=== PATIENT | male | born 1990 | race Caucasian/White ===

== ENCOUNTER 2016-11-19 22:36 | Emergency (ER) | payer SELFPAY ==
[~2016-11-19] VITALS: Ht 182.9 cm; Wt 68.5 kg
[~2016-11-19 22:36] MED LIST: TRAM50TA2 PO
[2016-11-19 22:44] VITALS: Ht 182.9 cm; Wt 68.5 kg
[2016-11-19] MEDS ORDERED: SOD CHLORIDE 0.9% 1,000 ML IV STA (23:16)
[2016-11-19] MEDS ORDERED: ONDANSETRON 4 MG INJ IV STA (23:16)
[2016-11-19] MEDS ORDERED: morphine 2 MG INJ IV STA (23:16)
--- NOTE | 2016-11-19 23:21 | ERD ---
ER Documentation Chief Complaint Date/Time DATE: 11/19/16 TIME: 23:20 Chief Complaint abdominal pain/back pain x 1 hour HPI 26-year-old male presents here in emergency department for complaints of epigastric abdominal pain started an hour prior to arrival. Patient described the pain as sharp pain, 6/10 scale, not better or worse with anything. Patient denies any nausea or vomiting. Patient denies any fever or chills. Patient denies hematuria or dysuria. ROS All systems reviewed and are negative except as per history of present illness. Medications Home Meds Active Scripts Tramadol HCl (Tramadol HCl) 50 Mg Tab, 50 MG PO Q4 Y for PAIN, #20 TAB Prov:STEFANO TOMAS 04/10/15 Allergies Allergies: Coded Allergies: No Known Drug Allergies (Verified Allergy, Unknown, 04/10/15) PMhx/Soc Medical and Surgical Hx: pt denies Medical Hx, pt denies Surgical Hx Hx Alcohol Use: Yes (every other day) Hx Substance Use: No Hx Tobacco Use: Yes (6 cigs per day) FmHx Family History: coronary disease, diabetes, other Physical Exam Vitals Vital Signs Date Time Temp Pulse Resp B/P Pulse Ox O2 Delivery O2 Flow Rate FiO2 11/19/16 22:44 96.0 84 20 133/67 100 Physical Exam GENERAL: The patient is well developed and appropriate for usual state of health, in no apparent distress. CHEST: Clear to auscultation bilaterally. There are no rales, wheezes or rhonchi. HEART: Regular rate and rhythm. No murmurs, clicks, rubs or gallops. No S3 or S4. ABDOMEN: Soft, nontender and nondistended. Good bowel sounds. No rebound or guarding. No gross peritonitis. No gross organomegaly or masses. No Andres sign or McBurney point tenderness. BACK: No midline or flank tenderness. EXTREMITIES: Equal pulses bilaterally. There is no peripheral clubbing, cyanosis or edema. No focal swelling or erythema. Full range of motion. Grossly neurovascularly intact. NEURO: Alert and oriented. Cranial nerves 2-12 intact. Motor strength in all 4 extremities with 5/5 strength. Sensation grossly intact. Normal speech and gait. SKIN: There is no apparent rash or petechia. The skin is warm and dry. HEMATOLOGIC AND LYMPHATIC: There is no evidence of excessive bruising or lymphedema. No gross cervical, axillary, or inguinal lymphadenopathy. Result Diagram: 11/19/16 2335 11/19/16 2335 Results 24 hrs Laboratory Tests Test 11/19/16 01:25 11/19/16 23:35 Urine Bilirubin NEGATIVE Urine Clarity CLEAR Urine Color LT. YELLOW Urine Glucose NEGATIVE% Urine Hemoglobin NEGATIVE Urine Ketones 40 Urine Leukocyte Esterase NEGATIVE Urine Nitrite NEGATIVE Urine Specific [place] 1.010 Urine Total Protein NEGATIVE Urine Urobilinogen 0.2 E.U./dL Urine pH 7.0 Alanine Aminotransferase (ALT/SGPT) 96IU/L Albumin 4.5g/dl Albumin/Globulin Ratio 1.45 Alkaline Phosphatase 75IU/L Anion Gap 20 Aspartate Amino Transf (AST/SGOT) 164IU/L Basophils # 0.010^3/ul Basophils % 0.2% Blood Urea Nitrogen 21mg/dl Calcium Level 9.3mg/dl Carbon Dioxide Level 25mmol/L Chloride Level 98mmol/L Creatinine 0.79mg/dl Direct Bilirubin 0.00mg/dl Eosinophils # 0.010^3/ul Eosinophils % 0.2% Globulin 3.10g/dl Glucose Level 196mg/dl Hematocrit 38.7% Hemoglobin 13.5g/dl Indirect Bilirubin 0.3mg/dl Lipase 46U/L Lymphocytes # 1.110^3/ul Lymphocytes % 11.6% Mean Corpuscular Hemoglobin 29.2pg Mean Corpuscular Hemoglobin Concent 34.9g/dl Mean Corpuscular Volume 83.8fl Mean Platelet Volume 10.1fl Monocytes # 0.310^3/ul Monocytes % 3.4% Neutrophils # 7.810^3/ul Neutrophils % 84.1% Nucleated Red Blood Cells # 0.010^3/ul Nucleated Red Blood Cells % 0.0/100WBC Platelet Count 58851^3/UL Potassium Level 3.6mmol/L Red Blood Count 4.6210^6/ul Red Cell Distribution Width 11.9% Sodium Level 139mmol/L Total Bilirubin 0.3mg/dl Total Protein 7.6g/dl White Blood Count 9.310^3/ul Current Medications Medications (Trade) Dose Ordered Sig/Natasha Route PRN Reason Start Time Stop Time Status Last Admin Dose Admin Sodium Chloride (NS) 1,000 ml @ 1,000 mls/hr Q1H STAT IV 11/19/16 23:16 11/20/16 00:15 DC 11/19/16 23:31 Morphine Sulfate (morphine) 2 mg ONCE STAT IV 11/19/16 23:16 11/19/16 23:20 DC 11/19/16 23:31 Ondansetron HCl (Zofran Inj) 4 mg ONCE STAT IV 11/19/16 23:16 11/19/16 23:20 DC 11/19/16 23:31 IV Flush 10 ml 10 ml STK-MED ONCE .ROUTE 11/20/16 00:21 11/20/16 00:22 DC 11/20/16 00:25 Sodium Chloride (NS) 100 ml @ ud STK-MED ONCE .ROUTE 11/20/16 00:21 11/20/16 00:22 DC 11/20/16 00:25 Iohexol (Omnipaque 300mg/ ml) 150 ml STK-MED ONCE .ROUTE 11/20/16 00:21 11/20/16 00:22 DC 11/20/16 00:25 Miscellaneous Medication (Gi Cocktail (2)) 40 ml ONCE ONCE PO 11/20/16 01:00 11/20/16 01:10 DC 11/20/16 01:14 Famotidine (Pepcid Iv) 20 mg ONCE ONCE IV 11/20/16 01:00 11/20/16 01:10 DC 11/20/16 01:14 Hydromorphone HCl (Dilaudid) 1 mg ONCE STAT IV 11/20/16 00:59 11/20/16 01:10 DC 11/20/16 01:15 Procedures/MDM Medical Decision Making: Patient's symptoms of abdominal pain epigastric pain most likely is consistent with possible gastric ulcer, low suspicion for any acute bowel perforation. Possible gastritis also. I discussed this case with my attending physician, Dr. Horton, he recommended to give patient a GI cocktail , IV Dilaudid, and Pepcid here in emergency department with symptoms, will be sent home with pain medications. He reviewed patient's CT scan abdomen and pelvis, did not recommend any more imaging to be done. There is low suspicion for abdominal emergencies at this time. Patients abdominal exam is normal at this time. Patients radiology exam does not show any abdominal emergencies at this time. There is low suspicion for appendicitis, cholecystitis, abdominal aortic aneurysms or peritonitis at this time. There is low suspicion for sepsis. Patient appears well and is hemodynamically stable. Disposition: Home. Condition: Stable Prescription [place], omeprazole, Mylanta, Zofran Instructions: Patient is advised to take medications as prescribed. Patient is advised to rest, increase fluid intake and do eat at regular intervals, low acidic diet for next 1-2 days and progress as tolerated. Patient is advised that if symptoms are worse, severe abdominal pain, uncontrolled vomiting, high fever, severe flank pain, worst signs and symptoms, to return to the emergency department immediately. Otherwise, patient can follow up with primary care doctor in 5-7 days. Departure Diagnosis: Primary Impression: Abdominal pain Abdominal location: epigastric Qualified Code: R10.13 - Epigastric pain Condition: Stable Patient Instructions: Epigastric Pain (Uncertain Cause) Additional Instructions: Patient is advised to take medications as prescribed. Patient is advised to rest , increase fluid intake and do eat at regular intervals, low acidic diet for next 1-2 days and progress as tolerated. Patient is advised that if symptoms are worse, severe abdominal pain, uncontrolled vomiting, high fever, severe flank pain, worst signs and symptoms, to return to the emergency department immediately. Otherwise, patient can follow up with primary care doctor in 5-7 days. NEWTON SRINIVASAN NP Nov 19, 2016 23:21
[2016-11-19 23:48] LABS: ADD SCAN DIFF NO
[2016-11-19 23:49] LABS: BASOPHILS % 0.2 % (0.0-2.0); EOSINOPHILS % 0.2 % (0.0-7.0); HEMATOCRIT 38.7 % (42.0-52.0); HEMOGLOBIN 13.5 g/dl (14.0-18.0); LYMPHOCYTES # 1.1 10^3/ul (0.8-2.9); LYMPHOCYTES % 11.6 % (15.0-51.0); MEAN CORPUSCULAR HEMOGLOBIN 29.2 pg (29.0-33.0); MEAN CORPUSCULAR HGB CONC 34.9 g/dl (32.0-37.0); MEAN CORPUSCULAR VOLUME 83.8 fl (82.0-101.0); MEAN PLATELET VOLUME 10.1 fl (7.4-10.4); MONOCYTE # 0.3 10^3/ul (0.3-0.9); MONOCYTES % 3.4 % (0.0-11.0); NEUTROPHIL # 7.8 10^3/ul (1.6-7.5); NEUTROPHILS % 84.1 % (39.0-77.0); PLATELET COUNT 153 10^3/UL (140-415); RED BLOOD COUNT 4.62 10^6/ul (4.70-6.10); RED CELL DISTRIBUTION WIDTH 11.9 % (11.5-14.5); WHITE BLOOD COUNT 9.3 10^3/ul (4.8-10.8)
[2016-11-20 00:07] LABS: ALBUMIN 4.5 g/dl (3.3-4.9)
[2016-11-20 00:08] LABS: POTASSIUM 3.6 mmol/L (3.5-5.1)
[2016-11-20 00:10] LABS: ALBUMIN/GLOBULIN RATIO 1.45; BILIRUBIN,INDIRECT 0.3 mg/dl (0-1.1); BILIRUBIN,TOTAL 0.3 mg/dl (0.2-1.3); CREATININE 0.79 mg/dl (0.61-1.24); TOTAL PROTEIN 7.6 g/dl (6.1-8.1)
[2016-11-20 00:11] LABS: CALCIUM 9.3 mg/dl (8.4-10.2)
[2016-11-20] MEDS ORDERED: IOHEXOL 300MG/ML 150 ML BTL ONE (00:21)
[2016-11-20] MEDS ORDERED: SOD CHLORIDE 0.9% 100 ML ONE (00:21)
--- NOTE | 2016-11-20 00:47 | RADRPT ---
PROCEDURE: CT Abdomen and Pelvis with contrast. CLINICAL INDICATION: Abdominal pain. TECHNIQUE: A CT scan of the abdomen and pelvis was performed with intravenous contrast. The patie nt was scanned following the uncomplicated intravenous administration of 100 cc of Omnipaque-300. C oronal and sagittal reformatted images were obtained from the axial source images. Images were revie wed on a high-resolution PACS workstation. CTDIvol: 4.67 mGy. DLP: 296.18 mGy-cm. One or more of the following dose reduction techniques were used: - Automated exposure control. - Adjustment of the mA and/or kV according to patient size. - Use of iterative reconstruction technique. COMPARISON: None. FINDINGS: The lung bases are clear. There is mild intrahepatic biliary ductal dilatation, however the common bile duct is not dilated (4 mm). The gallbladder is normal in appearance. The spleen is not enlarged. No pancreatic lesion is i dentified and there is no pancreatic ductal dilatation. The adrenal glands are unremarkable. The kidneys are normal in size. There is no perinephric fat stranding. No hydronephrosis is seen. The small and large bowel are normal in caliber. There is no bowel wall thickening. The appendix is not definitively identified, however there is a 5 mm diameter air-filled structure overlying the rig ht external iliac artery which probably represents a normal appendix. The urinary bladder is unremarkable. The pelvic organs are within normal limits. No lymphadenopathy is identified. There is no ascites. No pneumoperitoneum is seen. There are no art erial calcifications. No suspicious osseous lesion is idenitified. IMPRESSION: 1. No inflammation, mass, or lymphadenopathy. 2. The appendix is not definitively identified, however there is a 5 mm diameter air-filled structu re overlying the right external iliac artery which probably represents a normal appendix. If there i s high concern for appendicitis, close clinical follow-up is recommended. Any follow-up CT imaging should be performed with both oral and intravenous contrast. 3. Mild intrahepatic biliary ductal dilatation. The common bile duct is not dilated, however (4 mm ). Correlation with bilirubin levels is recommended. This could be further evaluated with MRCP or ERCP, as clinically warranted. RPTAT: HTAR .Noé Carmona, MD, Date Time Electronically viewed and signed by .Noé Carmona MD, on 11/20/2016 00:47 .R/
[2016-11-20] MEDS ORDERED: HYDROmorphONE 1 MG/ML SYG IV STA (00:59)
[2016-11-20] MEDS ORDERED: FAMOTIDINE 20 MG INJ IV ONE (01:00)
[2016-11-20] MEDS ORDERED: LIDOCAINE/MYLANTA 40 ML BTL PO ONE (01:00)
[2016-11-20 02:12] LABS: ADD UMIC NO; URINE BILIRUBIN (Dip) NEGATIVE (NEGATIVE); URINE BLOOD (Dip) NEGATIVE (NEGATIVE); URINE COLOR LT. YELLOW (YELLOW); URINE GLUCOSE (Dip) NEGATIVE (NEGATIVE); URINE KETONES (Dip) 40 (NEGATIVE); URINE LEUKOCYTE ESTERASE (Dip) NEGATIVE (NEGATIVE); URINE NITRITE (Dip) NEGATIVE (NEGATIVE); URINE TOTAL PROTEIN (Dip) NEGATIVE (NEGATIVE); URINE UROBILINOGEN (Dip) 0.2 E.U./dL (0.1-1.0)
[2016-11-20] MEDS ORDERED: ONDA4TAB14 PO (02:50)
[2016-11-20] MEDS ORDERED: MAG-19 PO (02:50)
[2016-11-20] MEDS ORDERED: OMEP20CA16 PO (02:50)
[2016-11-20] MEDS ORDERED: HYDR-906 PO (02:50)
[2016-11-20 03:15] VITALS: BP 104/58; PULSE 73; RESP 17; TEMP 98.5
== END 2016-11-20 03:15 | disposition home or self-care (01) ==
LOC: FTE 22:36
DX: R10.13 Epigastric pain (principal); F17.210 Nicotine dependence, cigarettes, uncomplicated
CPT/HCPCS: 36415; 74177; 80053; 81003; 83690; 85025; 96361; 96374; 96375; 99285; J1170; J2270; J2405; J7030; Q9967